=== PATIENT | female | born 1980 | race Two or more races ===

== ENCOUNTER 2025-01-31 09:28 | Emergency (ER) | payer MEDICAID ==
[~2025-01-31] VITALS: Ht 157.5 cm; Wt 129.9 kg
[~2025-01-31 09:28] MED LIST: CETI10CH3; ESOMEPRAZOLE; PHEN37.577; [UNRECOGNIZED DRUG - CODE]
[2025-01-31] MEDS: HYDROcodone-ACET 10/325MG TAB PO ONE (10:32)
--- NOTE | 2025-01-31 10:35 | ED.PDOC ---
History of Present Illness HPI Comments 44-year-old female came to the ER because she is complaining of low back pain which started Tuesday. 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 She does have a history of back problems. She denies any direct trauma to the back. History of diabetes. Denies any other symptoms. Chief Complaint: Back Pain Time Seen by MD: 09:40 Primary Care Provider: NONE Reviewed Notes: Nurses Notes, Medications, Allergies Allergies: Coded Allergies: Acetaminophen (Verified Allergy, Unknown, 04/13/10) Hydrocodone (Verified Allergy, Unknown, 04/13/10) Penicillins (Verified Allergy, Unknown, 04/13/10) Home Meds Active Scripts Ibuprofen Micronized (MOTRIN TABLET) 600 Mg Tb, 600 MG PO TID PRN for 3 Days, #9 TAB *Black box warning-NSAIDS can increase risk of CO & hypertension, GI irritation, ulceration, bleed, perferation. Do not use post cardiac surgery. Use short duration/lowest effective dose. 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 History Social History Smoker: Non-Smoker Alcohol: Denies ETOH Use Drugs: Denies Drug Use Constitutional: denies: chills, diaphoresis, fatigue, fever, malaise, sweats, weakness, others EENTM: denies: blurred vision, double vision, ear bleeding, ear discharge, ear drainage, ear pain, ear ringing, eye pain, eye redness, hearing loss, mouth pain, mouth swelling, nasal discharge, nose bleeding, nose congestion, nose pain, photophobia, tearing, throat pain, throat swelling, voice changes, others Respiratory: denies: cough, hemoptysis, orthopnea, SOB at rest, shortness of breath, SOB with excertion, stridor, wheezing, others Cardiovascular: denies: chest pain, dizzy spells, diaphoresis, Dyspnea on exertion, edema, irregular heart beat, left arm pain, lightheadedness, palpitations, PND, syncope, others Gastrointestinal: denies: abdomen distended, abdominal pain, blood streaked bowels, constipated, diarrhea, dysphagia, difficulty swallowing, hematemesis, melena, nausea, poor appetite, poor fluid intake, rectal bleeding, rectal pain, vomiting, others Genitourinary: denies: abnormal vagina bleeding, burning, dyspareunia, dysuria, flank pain, frequency, hematuria, incontinence, pain, , vagina discharge, urgency, others Neurological: denies: dizziness, fainting, headache, left sided numbness, left sided weakness, numbness, paresthesia, pre-existing deficit, right sided numbness, right sided weakness, seizure, speech problems, tingling, tremors, weakness, others Musculoskeletal: reports: back pain; denies: gout, joint pain, joint swelling, muscle pain, muscle stiffness, neck pain, others Integumetry: denies: bruises, change in color, change in hair/nails, dryness, laceration, lesions, lumps, rash, wounds, others Allergic/Immunocompromised: denies: Difficulty Healing, Frequent Infections, Hives, Itching, others Hematologic/Lymphatic: denies: anemia, blood clots, easy bleeding, easy bruising, swollen glands, others Endocrine: denies: excessive hunger, excessive sweating, excessive thirst, excessive urination, flushing, intolerance to cold, intolerance to heat, unexplained weight gain, unexplained weight loss, others Psychiatric: denies: anxiety, bipolar disorder, depression, hopeless, panic disorder, schizophrenia, sleepless, suicidal, others Physical Exam General Appearance: Moderate Distress, Obese HEENT: Normal ENT Inspection, Pharynx Normal, TMs Normal Neck: Full Range of Motion, Non-Tender, Normal, Normal Inspection Respiratory: Chest Non-Tender, Lungs Clear, No Accessory Muscle Use, No Respiratory Distress, Normal Breath Sounds Cardiovascular: No Edema, No JVD, No Murmur, No Gallop, Normal Peripheral Pulses, Regular Rate/Rhythm Breast Exam: Deferred Gastrointestinal: No Organomegaly, Non Tender, No Pulsatile Mass, Normal Bowel Sounds, Soft Genitalia: Deferred Pelvic: Deferred Rectal: Deferred Extremities: No calf tenderness, Normal capillary refill, Normal inspection, Normal range of motion, Non-tender, No pedal edema Musculoskeletal : Apperance: Normal Neurologic: Alert, rivet bucker II-XII nml as Tested, No Motor Deficits, Normal Affect, Normal Mood, No Sensory Deficits Cerebellar Function: Normal Reflexes: Normal Skin: Dry, Normal Color, Warm Peripheral Pulses: 3+ Radial (R), 3+ Radial (L) Lymphatic: No Adenopathy Was a procedure done? Was a procedure done?: No Differential Dx Considerations may include: Degenerative disc disease Musculoskeletal pain X-Ray, Labs, Meds, VS Vital Signs Date Time Temp Pulse Resp B/P (MAP) Pulse Ox O2 Delivery O2 Flow Rate FiO2 01/31/25 14:10 110/77 (88) 01/31/25 14:06 98.0 76 20 143/101 (115) 98 98.0 01/31/25 10:47 70 20 100 Room Air 01/31/25 10:47 98.9 70 20 124/87 (99) 100 98.9 01/31/25 09:42 98.0 73 20 114/89 (97) 99 98.0 Current Medications Medications (Trade) Dose Ordered Sig/Ricky Route Start Time Stop Time Status Last Admin Ketorolac Tromethamine (Toradol Injection) 60 mg ONCE ONCE IM 01/31/25 10:45 01/31/25 10:46 DC 01/31/25 10:46 [place] [id number] Ph: [phone] DIAGNOSTIC IMAGING Diagnostic Imaging Report : [id number] Signed PATIENT: MEI FAIRCHILD ACCT: [id number] UNIT: [id number] : 1980 LOC: ER ROOM / BED: / AGE / SEX: 44 / F ADM STATUS: REG ER SERVICE 1001 ORDERING PHYSICIAN: BUDDY PIMENTEL MD PROCEDURE(s): LS - LUMBAR SPINE 4+ VIEW REASON: degen ORDER NUMBER(s): [id number], ACCESSION NUMBER(s): [id number] EXAM: XY LUMBAR SPINE 4+ VIEW CLINICAL INDICATION: degen TECHNIQUE: XY LUMBAR SPINE 4+ VIEW Comparison: None Findings: Lumbar vertebrae are normal in height. There is a 9.5 mm anterolisthesis at L4-5. Disc space narrowing at L4-5 and L5-S1. No spondylolysis is present IMPRESSION: 1. No acute bony pathology. 2. At L4-5 anterolisthesis due to degenerative facet joint disease 3. At L5-S1 degenerative disc disease ATED BY: ALVARADO PERES MD DICTATED DATE/TIME: 01/31/251041 SIGNED BY: ALVARADO PERES MD SIGNED DATE/TIME: 01/31/251041 CC: Patient alert. Complaining of back pain. No direct trauma. Vitals stable. Was given Toradol. X-ray does not show any acute changes. She was explained to that she will need MRI. Was told to follow up with her primary care physician. Was told to come back if there is any problem. Time of 1ST Reevaluation: 10:33 Reevaluation 1ST: Unchanged Patient Education/Counseling: Diagnosis, Treatment, Prognosis, Need For Follow Up Family Education/Counseling: No Family Present SEPSIS Sepsis Screen Date sepsis recognized/suspect: Jan 31, 2025 Time Sepsis recognized/suspect: 943 Recent Procedure: No On Antibiotic Therapy: No Respiratory Rate >20: No Heart Rate >90: No Temp<36 C (96.8 F) or >38.3 C: No SBP <90 or MAP <65 mmHG: No New Acute Mental Status Change: No Is the patient on CPAP, BIPAP,: No Physician Orders Lumbar Spine 4+ View (01/31/25 10:01) Vital Signs Date Time Temp Pulse Resp B/P (MAP) Pulse Ox O2 Delivery O2 Flow Rate FiO2 01/31/25 14:10 110/77 (88) 01/31/25 14:06 98.0 76 20 143/101 (115) 98 98.0 01/31/25 10:47 70 20 100 Room Air 01/31/25 10:47 98.9 70 20 124/87 (99) 100 98.9 01/31/25 09:42 98.0 73 20 114/89 (97) 99 98.0 Medications Medications Dose Ordered Sig/Ricky Route Start Time Stop Time Status Last Admin Dose Admin Ketorolac Tromethamine 60 mg ONCE ONCE IM 01/31/25 10:45 01/31/25 10:46 DC 01/31/25 10:46 Departure 1 Departure Time of Disposition: 10:34 Impression: Primary Impression: Degenerative disc disease Qualified Codes: M51.369 - Other intervertebral disc degeneration, lumbar region without mention of lumbar back pain or lower extremity pain Additional Impression: Lumbar sprain Qualified Codes: S33.5XXA - Sprain of ligaments of lumbar spine, initial encounter Disposition: HOME / SELF CARE / HOMELESS Condition: Good e-Prescriptions Ibuprofen Micronized (MOTRIN TABLET) 600 Mg Tb 600 MG PO TID PRN for 3 Days, #9 TAB *Black box warning-NSAIDS can increase risk of CO & hypertension, GI irritation, ulceration, bleed, perferation. Do not use post cardiac surgery. Use short duration/lowest effective dose. Prov: BUDDY PIMENTEL MD 01/31/25 Discharged With: Self Critical Care Note Critical Care Time?: No Stability Stability form required: No Heart Score Heart Score: Heart Score Response (Comments) Value History N/A 0 EKG N/A 0 Age N/A 0 Risk Factors N/A 0 Troponin N/A 0 Total 0 I personally scribed for BUDDY PIMENTEL MD ([email or web address]) on 01/31/25 at 11:23. Electronically submitted by Abimbola Lowery ([email or web address]). I personally scribed for BUDDY PIMENTEL MD ([email or web address]) on 01/31/25 at 14:05. Electronically submitted by Abimbola Lowery [email or web address]). BUDDY PIMENTEL MD Jan 31, 2025 10:35
--- NOTE | 2025-01-31 10:45 | DVH ---
EXAM: XY LUMBAR SPINE 4+ VIEW CLINICAL INDICATION: degen TECHNIQUE: XY LUMBAR SPINE 4+ VIEW Comparison: None Findings: Lumbar vertebrae are normal in height. There is a 9.5 mm anterolisthesis at L4-5. Disc sp marleni narrowing at L4-5 and L5-S1. No spondylolysis is present IMPRESSION: 1. No acute bony pathology. 2. At L4-5 anterolisthesis due to degenerative facet joint disease 3. At L5-S1 degenerative disc disease
[2025-01-31] MEDS: KETOROLAC TROMETH 60MG/2ML VIAL IM ONE (10:46)
[2025-01-31] MEDS ORDERED: IBU600T PO (14:11)
[2025-01-31 15:04] VITALS: BP 118/56; TEMP 98
[2025-01-31 15:08] VITALS: PULSE 79; RESP 20; O2SAT 96
[2025-01-31] MEDS: OXYCODONE W/ ACETAMINOPHEN 5/325MG TABLET PO ONE (15:16)
== END 2025-01-31 15:21 | disposition home or self-care (01) ==
LOC: ER 09:28
DX: S33.5XXA Sprain of ligaments of lumbar spine, initial encounter (principal); E11.9 Type 2 diabetes mellitus without complications; Z88.0 Allergy status to penicillin; Z88.5 Allergy status to narcotic agent; Z79.899 Other long term (current) drug therapy; X58.XXXA Exposure to other specified factors, initial encounter; Y93.89 Activity, other specified; Y92.89 Other specified places as the place of occurrence of the external cause; Y99.8 Other external cause status
CPT/HCPCS: 72110; 96372; 99283; J1885